=== PATIENT | male | born 1990 | race Caucasian/White ===

== ENCOUNTER 2019-08-14 13:39 | Emergency (ER) | payer SELFPAY ==
[~2019-08-14] VITALS: Ht 177.8 cm; Wt 88.6 kg
[2019-08-14 13:48] VITALS: BP 139/62
[2019-08-14] MEDS ORDERED: DEXAMETHASONE 4 MG TABLET PO ONE (14:30)
[2019-08-14] MEDS ORDERED: DEXAMETHASONE 4 MG TABLET ONE (14:30)
== END 2019-08-14 15:05 | disposition home or self-care (01) ==
LOC: ED 14:50
DX: J02.9 Acute pharyngitis, unspecified (principal); B97.89 Other viral agents as the cause of diseases classified elsewhere
CPT/HCPCS: 87081; 87880; 99283